=== PATIENT | female | born 1970 | race Two or more races ===

== ENCOUNTER 2024-01-04 16:37 | Emergency (ER) | payer OTHER ==
[~2024-01-04] VITALS: Ht 162.6 cm; Wt 88.6 kg
[2024-01-04] MEDS ORDERED: INSU100V64 SQ (18:37)
[2024-01-04] MEDS ORDERED: METF-436 PO (18:37)
[2024-01-04] MEDS: normal saline 1000ml 1,000 ML IV ONE (18:44)
[2024-01-04 18:51] LABS: ALANINE AMINOTRANSFERASE 26 U/L (12-78); ALBUMIN/GLOBULIN RATIO 0.4 (1.1-1.5); ALKALINE PHOSPHATASE 156 IU/L (46-116); ANION GAP 5 (8-16); ASPARTATE AMINO TRANSFERASE 16 U/L (10-37); BILIRUBIN,TOTAL 0.1 MG/DL (0.1-1.0); BLOOD UREA NITROGEN 24 MG/DL (7-18); BUN/CREATININE RATIO 27.6 (10.0-20.0); CALCIUM 8.5 MG/DL (8.5-10.1); CHLORIDE 101 MMOL/L (99-107); CREATININE 0.87 MG/DL (0.40-0.90); POTASSIUM 4.8 MMOL/L (3.5-5.1); SODIUM 135 MMOL/L (135-145); TOTAL CARBON DIOXIDE 29.3 MMOL/L (24-32); TOTAL PROTEIN 7.1 G/DL (6.4-8.2); eCRCL 63 ML/MIN; eGFR 68 ML/MIN
[2024-01-04 19:05] LABS: BASOPHILS % (AUTO) 0.5 % (0-1); EOSINOPHILS # (AUTO) 0.3 X10'3 (0-0.9); EOSINOPHILS % (AUTO) 3.2 % (0-6); HEMATOCRIT 29.1 % (35.0-45.0); HEMOGLOBIN 9.4 g/dl (12.0-16.0); LYMPHOCYTES # (AUTO) 1.4 X10'3 (1.1-4.8); LYMPHOCYTES % (AUTO) 17.3 % (21-51); MEAN CORPUSCULAR HEMOGLOBIN 27.9 PG (27.0-31.0); MEAN CORPUSCULAR HGB CONC 32.2 g/dL (33.0-36.5); MEAN CORPUSCULAR VOLUME 86.6 FL (78-98); MEAN PLATELET VOLUME 8.5 FL (7.4-10.4); MONOCYTES # (AUTO) 0.7 X10'3 (0-0.9); NEUTROPHILS # (AUTO) 5.9 X10'3 (1.8-7.7); PLATELET COUNT 379 X10'3 (140-440); RED BLOOD COUNT 3.36 X10'6 (4.20-5.60); RED CELL DISTRIBUTION WIDTH 13.2 % (11.5-14.5); WHITE BLOOD COUNT 8.3 X10'3 (4.5-11.0)
[2024-01-04 19:19] LABS: GLUCOSE 447 MG/DL (70-104)
[2024-01-04] MEDS ORDERED: dextrose 50%-water 50ml dispensing syringe IV PRN (20:35)
[2024-01-04] MEDS: Insulin Reg/NS 100units/100mL 100 ML IV SCH (21:03)
[2024-01-04] MEDS: VANCOMYCIN 1,500MG inj. 1,500 MG in normal saline 500ml IV soln 300 ML IV ONE (21:29)
[2024-01-04 21:37] VITALS: BP 161/72; PULSE 92; RESP 17; TEMP 98.9; O2SAT 91
[2024-01-04] MEDS: cefepime 2g/NS 100ml ADVANTAGE 100 ML IV ONE (21:45)
== END 2024-01-04 22:19 | disposition short-term general hospital (02) ==
LOC: ER 16:38
DX: T25.322A Burn of third degree of left foot, initial encounter (principal); T25.321A Burn of third degree of right foot, initial encounter; L03.116 Cellulitis of left lower limb; L03.115 Cellulitis of right lower limb; E11.65 Type 2 diabetes mellitus with hyperglycemia; E11.40 Type 2 diabetes mellitus with diabetic neuropathy, unspecified; I10 Essential (primary) hypertension; X08.8XXA Exposure to other specified smoke, fire and flames, initial encounter; Y93.89 Activity, other specified; Y92.89 Other specified places as the place of occurrence of the external cause; Y99.8 Other external cause status
CPT/HCPCS: 36415; 80053; 82948; 83605; 85025; 87040; 96361; 96365; 96366; 96367; 96368; 99285; J0692; J1815; J3370; J7030; J7040; 99284; A6446; A6449